=== PATIENT | female | born 1975 | race Caucasian/White ===

== ENCOUNTER → 2017-02-14 | Outpatient (CLI) | payer OTHER ==
[~2017-02-14] MED LIST: AMITRIPTYLINE25 MG PO; AUGMENTIN 875875 MG PO; CYCLOBENZAPRINE5 M3 PO; DAYPRO600 M1 PO; EFFEXOR XR150 MG PO; FLEXERIL10 MG PO; IBU800 M1 PO; KETOROLAC10 MG PO; ROBAXIN500 M1 PO; ROBAXIN750 MG PO; TRAMADOL HCL50 MG PO
== END | disposition home or self-care (01) ==
LOC: RAD 11:40
DX: M41.84 Other forms of scoliosis, thoracic region (principal); M54.2 Cervicalgia; M54.5 Low back pain

== ENCOUNTER → 2017-02-27 | Outpatient (CLI) | payer OTHER | END | disposition home or self-care (01) | LOC: MRI 02-25 08:00 | DX: M54.14 Radiculopathy, thoracic region (principal); F43.23 Adjustment disorder with mixed anxiety and depressed mood; F51.01 Primary insomnia; M54.2 Cervicalgia; M54.5 Low back pain; M12.88 Other specific arthropathies, not elsewhere classified, other specified site ==

== ENCOUNTER 2022-12-29 18:16 | Emergency (ER) | payer OTHER ==
[~2022-12-29] VITALS: Ht 1780 cm; Wt 65.8 kg
[2022-12-29] MEDS ORDERED: PREDNISONE20 M1 PO (19:09)
== END 2022-12-29 19:12 | disposition home or self-care (01) ==
LOC: ED 18:16
DX: M25.511 Pain in right shoulder (principal); M25.521 Pain in right elbow; M79.641 Pain in right hand; Z88.8 Allergy status to other drugs, medicaments and biological substances; Z98.51 Tubal ligation status